=== PATIENT | male | born 1990 | race Hispanic/Latino ===

== ENCOUNTER 2023-01-17 12:19 | Emergency (ER) | payer OTHER, SELFPAY ==
--- NOTE | ~2023-01-17 | CT_ITS ---
EXAMINATION: CT abdomen pelvis w con DATE: 01/17/2023 14:59 INDICATION: Suprapubic pain. TECHNIQUE: Computed tomography (CT) of the abdomen and pelvis was performed with 100 mL Omnipaque 350 intravenous contrast. Automated exposure control and iterative reconstruction technique were employe d. The dose-length product was 731.41 mGy-cm. COMPARISON: None. FINDINGS: The visualized portions of the lung bases demonstrated mild dependent atelectasis. No pleur al effusion. The heart size is normal. No pericardial effusion. The liver, gallbladder, spleen, pancr eas, adrenal glands, and kidneys are normal. There are no dilated loops of bowel. The appendix is nor mal. There are no pathologically enlarged lymph nodes. There are enlarged perirectal and periprostati c veins with early contrast opacification. There is mild thoracic and lumbar spondylosis. IMPRESSION: 1. Enlarged perirectal and periprostatic veins with early contrast opacification suspicious for arter iovenous malformation. Reviewed, dictated and finalized at location A. IMPRESSION: 1. Enlarged perirectal and periprostatic veins with early contrast opacificatio n suspicious for arteriovenous malformation.
[2023-01-17 12:22] VITALS: BP 114/62; PULSE 59; RESP 16; TEMP 36.6; O2SAT 100
[2023-01-17 12:40] LABS: Basophils Percent Auto 0.8 % (0.2-1.2); Eosinophils Absolute Auto 0.1 K/mm3 (0-0.3); Eosinophils Percent Auto 2.2 % (0-4.4); Hematocrit 38.5 % (42.0-52.0); Immature Granulocyte Absolute 0.01 K/mm3 (0.00-0.031); Immature Granulocyte Percent A 0.2 % (0-0.5); Lymphocytes Absolute Auto 2.38 K/mm3 (0.9-3.2); Lymphocytes Percent Auto 46.9 % (18.3-44.2); Mean Corpuscular HGB Conc 33.8 g/dl (32-36); Mean Corpuscular Hemoglobin 31.4 pg (26-34); Mean Platelet Volume 10.3 fl (7.4-10.4); Monocytes Absolute Auto 0.5 K/mm3 (0.1-0.6); Monocytes Percent Auto 10.5 % (2.6-8.5); Neutrophils Percent Auto 39.4 % (45.5-73.1); Platelet Count Result 181 k/mm3 (150-375); Red Blood Count 4.14 M/mm3 (4.6-6.20); Red Cell Distribution Width 12.4 % (11.5-14.5); White Blood Count 5.1 K/mm3 (4.5-10.0)
[2023-01-17 12:50] LABS: Alanine Aminotransferase 24 U/L (6-50); Albumin Level 4.2 g/dL (3.5-5.1); Alkaline Phosphatase 54 U/L (38-126); Anion Gap 2 mmol/L (8-16); Aspartate Amino Transferase 44 U/L (17-59); Bilirubin,Total 0.6 mg/dL (0.2-1.3); Blood Urea Nitrogen 16 mg/dL (9-20); Calcium 8.9 mg/dL (8.4-10.2); Carbon Dioxide 27 mmol/L (22-30); Chloride 106 mmol/L (98-107); Estimated CRCL calculation 117 ml/min; Estimated Glomerular Filt Rate > 60; Glucose 86 mg/dL (65-110); Lipase 64 U/L (23-300); Potassium 3.8 mmol/L (3.4-5.0); Sodium 135 mmol/L (137-145)
[2023-01-17 13:30] VITALS: BP 110/63; PULSE 59; RESP 18; O2SAT 97
[2023-01-17 14:17] VITALS: BP 117/68; PULSE 56; RESP 18; O2SAT 97
--- NOTE | 2023-01-17 14:26 | ED.ABDPAIN ---
HPI - Abdominal Pain General Chief Complaint: Abdominal Pain <Cielo Mahmood PA-C - Last Filed: 01/17/23 16:32> Stated Complaint: ab pain <Cielo Mahmood PA-C - Last Filed: 01/17/23 16:32> Time Seen by Provider: 01/17/23 13:10 <Cielo Mahmood PA-C - Last Filed: 01/17/23 16:32> History of Present Illness HPI narrative: 32-year-old male with active right ocular melanoma reports for evaluation for abdominal pain and distention x2 weeks. Patient states in the morning, he has abdominal distention and bloating along with generalized discomfort. States the bloating and pain improves after approximately 2 hours after waking up. He denies fever, nausea or vomiting, diarrhea, back pain, chest pain or shortness of breath, changes in dietary habits, urinary complaints. He has been able to eat and drink normally. States he went to his [place]-base physician who advised him to come to the ED for a CT scan given his active melanoma. <Cielo Mahmood PA-C - Last Filed: 01/17/23 16:32> Related Data Allergies/Adverse Reactions: Allergies Allergy/AdvReac Type Severity Reaction Status Date / Time No Known Allergies Allergy Verified 01/17/23 13:18 <Cielo Mahmood PA-C - Last Filed: 01/17/23 16:32> Review of Systems Review of Systems: CONSTITUTIONAL: Denies fever, chills EYES: Denies visual changes, redness, or discharge. ENT: Denies rhinorrhea, congestion, sore throat, or otalgia. CARDIOVASCULAR: Denies chest pain, palpitations, or edema. RESPIRATORY: Denies cough or dyspnea. GASTROINTESTINAL: See HPI GENITOURINARY: Denies dysuria or hematuria. SKIN: Denies rash or itching. MUSCULOSKELETAL: Denies back pain, joint pain, or myalgia. NEUROLOGIC: Denies headache, numbness, dizziness, or weakness. PSYCHIATRIC: Denies anxiety or depression. <Cielo Mahmood PA-C - Last Filed: 01/17/23 16:32> Exam Narrative: GENERAL: Well-appearing, in no acute distress. Patient resting comfortably in exam bed. He is pleasant and conversational. HEAD: Normocephalic NECK: Supple. CHEST: No respiratory distress. Clear to auscultation, no adventitious breath sounds. HEART: Regular rate and rhythm. No murmur heard. Normal peripheral pulses. ABDOMEN: Normal active bowel sounds. Abdomen soft with mild tenderness in the suprapubic region. No CVA tenderness. No guarding, rebound or rigidity. EXTREMITIES: Normal range of motion. No edema. SKIN: Warm, dry, no rash. NEURO: No focal deficits. Alert and oriented x3. PSYCH: Normal mood and affect. <Cielo Mahmood PA-C - Last Filed: 01/17/23 16:32> Course [employer]/PA Physician Supervision I personally evaluated and examined the patient in conjunction with the APC (SHANIKA Mahmood) and agree with the assessment, treatment plan and disposition of the patient as recorded by the APC. <Bienvenido Perrin MD - Last Filed: 01/18/23 07:14> Vital Signs Vital signs: Vital Signs Temperature 97.9 F 01/17/23 12:22 Pulse Rate 59 L 01/17/23 12:22 Respiratory Rate 16 01/17/23 12:22 Blood Pressure 114/62 01/17/23 12:22 Pulse Oximetry 100 01/17/23 12:22 Oxygen Delivery Room Air 01/17/23 12:22 Temperature 97.9 F 01/17/23 12:22 Pulse Rate 56 L 01/17/23 14:17 Respiratory Rate 18 01/17/23 16:00 Blood Pressure 129/69 01/17/23 16:00 Pulse Oximetry 100 01/17/23 16:00 Oxygen Delivery Room Air 01/17/23 12:22 <Cielo Mahmood PA-C - Last Filed: 01/17/23 16:32> Vital Signs Temperature 97.9 F 01/17/23 12:22 Pulse Rate 59 L 01/17/23 12:22 Respiratory Rate 16 01/17/23 12:22 Blood Pressure 114/62 01/17/23 12:22 Pulse Oximetry 100 01/17/23 12:22 Oxygen Delivery Room Air 01/17/23 12:22 Temperature 97.9 F 01/17/23 12:22 Pulse Rate 56 L 01/17/23 14:17 Respiratory Rate 18 01/17/23 16:00 Blood Pressure 129/69 01/17/23 16:00 Pulse Oximetry 100 01/17/23 16:00 Oxygen Delivery Room Air 01/17/23
[2023-01-17] MEDS: SODIUM CHLORIDE 0.9% IV 1,000 ML 999 ML IV CONT (14:39)
--- NOTE | 2023-01-17 15:26 | PC.NURSE ---
Pt refused urine sample due to, not thinking he needs it.
--- NOTE | 2023-01-17 15:29 | PC.NURSE ---
Pt gave urine sample.
[2023-01-17 15:56] LABS: Appearance Urine Clear (Clear); Bilirubin Urine Negative (Negative); Blood Urine Negative (Negative); Color Urine Yellow (Yellow); Glucose Urine UA Negative (Negative); Ketones Urine Negative (Negative); Leukocyte Esterase Ur Negative LEU/UL (Negative); Nitrate Urine Negative (Negative); Protein Urine Negative (Negative); Specific Grav Ur 1.016 (1.001-1.035); Urobilinogen Urine 0.2 mg/dL (<2.0)
[2023-01-17 15:58] LABS: Add Urine Microscopic? NO
[2023-01-17 16:00] VITALS: BP 129/69; RESP 18; O2SAT 100
== END 2023-01-17 16:37 | disposition home or self-care (01) ==
PROVIDERS: Preventive Medicine Aerospace Medicine; Emergency Provider Physician Assistant
DX: R10.84 Generalized abdominal pain (principal)
CPT/HCPCS: 36415; 74177; 80053; 81003; 83690; 85025; 96360; 99284; J7030; Q9967